=== PATIENT | male | born 1965 ===

== ENCOUNTER 2024-06-19 21:19 | Emergency (ER) | payer BC, SELFPAY ==
[2024-06-19 21:24] VITALS: BP 117/81; PULSE 115; RESP 16; TEMP 36.9; O2SAT 96; BMI 29.3
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
--- OUTSIDE RECORDS SUMMARY | 2024-06-19 22:12 | XMS_ITS | Continuity of Care Document ---
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 It does not include entries that were removed or entered in error. Problem Status Onset Date Problem Type Date of Resolution Comments Source Exposure to potentially hazardous substance ([facility] [id number]) Active 01/01/20 24 Condition Jan 01, 2024 Entered By: KAROLYN WILKINSON Comment: [facility] Documentation Initiative [facility] CAD - Coronary Artery Disease ([facility] [id number]) Active Condition Oct 27, 2023 Entered By: NORMA PETER Comment: NSTEMI - 2017 [facility]) Erectile dysfunction Active Condition [facility]) Ex-smoker Active Condition Oct 27 Entered By: NORMA PETER Comment: Quit > 15 years ago [facility]) Family history of disorder Active Condition Oct 27, 2023 Entered By: NORMA PETER Comment: Father -MIOct 27, 2023 Entered By: NORMA PETER Comment: Brother -MIOct 27, 2023 Entered By: NORMA PETER Comment: Mother -polycystic kidneys with renal transplant [facility]) GERD - Gastro-Esophageal Reflux Disease ([facility] [id number]) Active Condition [facility]) History of surgery Active Condition Oct 27, 2023 Entered By: NORMA PETER Comment: Cardiac stents [place] ([facility]) HTN - Hypertension ([facility] [id number]) Active Condition [facility]) Mixed Hyperlipidemia ([facility] [id number]) Active Condition [facility]) Obstructive sleep apnea of adult [facility] Social and personal history finding Active Condition Oct 27, 2023 Entered By: NORMA PETER Comment: MarriedOct 27, 2023 Entered By: NORMA PETER Comment: Does not drink alcoholOct 27, 2023 Entered By: NORMA PETER Comment: 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, 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 Entered By: NORMA PETER Comment: Co-managed at [facility] ([facility]) Diagnosis: ICD-10-CM Z13.83 Encounter for screening for respiratory disorder NEC Active Diagnosis [place] ([facility]) Diagnosis: ICD-10-CM R06.00 Dyspnea, unspecified Active Diagnosis [facility] Diagnosis: ICD-10-CM Z00.01 Encounter for general adult medical exam w abnormal findings Active Diagnosis [facility] ([facility]) Medications Combined list of outpatient medications from Department of Defense and Veterans Affairs facilities.Medications provided include 1) outpatient medications from the last 15 months, and 2) patient-reported medications. Medication Details Route Status Patient Instructions Prescription Expires Prescription Number Last Dispense Date Ordering Provider Order Date Order Qty Source ASPIRIN 81MG TAB,EC ASPIRIN 81MG TAB,EC Non-VA TAKE ONE TABLET BY MOUTH EVERY DAY Oct 13, 2022 Non-[facility] Document ed by: Suzette GRIDER Document ed at: [facility] ([facility]) ORAL ACTIVE PIERO GRIDER 2021 [facility] ([facility]) ATORVASTATI N CA 40MG TAB ATORVAST ATIN CA 40MG TAB Non-VA TAKE ONE TABLET BY MOUTH EVERY DAY Oct 13, 2022 Non-VA Document ed by: Suzette GRIDER Document ed at: [facility] ([facility]) ORAL ACTIVE PIERO GRIDER 2021 [facility] ([facility]) GLUCOSAMINE CAP/TAB GLUCOSAM INE CAP/TAB Non-VA TAKE UNK DOSE BY MOUTH DAILY SUPPLEME NT Oct 27, 2023 Non-VA Document ed by: LEVI PETER Document ed at: [facility] ([facility]) ORAL ACTIVE EUGENIE PETER 2023 [facility] ([facility]) LISINOPRIL 10MG TAB LISINOPR IL 10MG TAB Non-VA TAKE ONE-HALF TABLET BY MOUTH Oct 13, 2022 Non-VA Document ed by: Suzette GRIDER Document ed at: [facility] ([facility]) ORAL ACTIVE PIERO GRIDER 2021 [facility] ([facility]) NITROGLYCER IN 0.4MG TAB,SUBLING UAL NITROGLY CERIN 0.4MG TAB,SUBL INGUAL Non-VA DISSOLVE ONE TABLET UNDER THE TONGUE EVERY 5 MINUTES FOR UP TO 3 DOSES IF NEEDED NEEDED Oct 13, 2022 Non-VA Document ed by: Suzette GRIDER Document ed at: [facility] ([facility]) SUBLIN GUAL ACTIVE CHEOPIERO SEPAÑACatarino CLAU 2021 [facility] ([facility]) PANTOPRAZOL E NA 40MG TAB,EC PANTOPRA ZOLE NA 40MG TAB,EC Non-VA TAKE ONE TABLET BY MOUTH DAILY FOR HEARTBUR N Oct 27, 2023 Non-VA Document ed by: LEVI PETER Document ed at: [facility] ([facility]) ORAL ACTIVE EUGENIE PETER 2023 [facility] ([facility]) SILDENAFIL CITRATE 50MG TAB SILDENAF IL CITRATE 50MG TAB Non-VA TAKE ONE TABLET BY MOUTH NEEDED FOR ERECTILE DYSFUNCT ION FOR ERECTILE DYSFUNCT ION Oct 27, 2023 Non-VA Document ed by: LEVI PETER Document ed at: [facility] ([facility]) ORAL ACTIVE EUGENIE PETER 2023 [facility] ([facility]) Vital Signs Combined list of inpatient and outpatient Vital Signs from Department of Defense and Veterans Affairs, ranging from 12 months to all on record, depending upon the facility. Vital Sign Value Date Comments Source Encounters Combined list of: 1) Encounters from Department of Veterans Affairs facilities going back up to thelast 18 months. 2) Encounters from the Department of Defense facilities going back up to 280 months. Location Location Details Encounter Type Encounter Number Reason For Visit Attending Provider ADM Date DC Date Status Disposition Source [facility] Outpatient Encounter [id number] RAMESH PARDO 03/16 [facility] Outpatient Encounter [id number] 10/13 [facility] Outpatient Encounter [id number] 10/15 [facility] Outpatient Encounter [id number] 10/15 [facility] Outpatient Encounter [id number] 10/27 [facility] ([facility]) Outpatient Encounter [id number] Diagnos is: ICD-10- CM Z00.01 Encount er for general adult medical exam w abnorma l finding s
OSORIO PETER A 10/27 [facility] ([facility]) [facility] ([facility]) BREATHING CAPACITY TEST [id number] Diagnos is: ICD-10- CM Z13.83 Encount er for screeni ng for respira tory disorde r NEC<br/ > ANABEL,HE ATHER T 10/29 [facility] ([facility]) [facility] BREATHING CAPACITY TEST [id number] Diagnos is: ICD-10- CM R06.00 Dyspnea , unspeci fied
MIRIAN,CHRI DEBRA H 10/29 [facility] ([facility]) Outpatient Encounter [id number] 10/29 [facility] Outpatient Encounter [id number] 11/02 [facility] Social History Combined list of available smoking, tobacco, and other social history from Department of Defense and Veterans Affairs facilities. Social History Type Response Date Comment Source Tobacco smoking status [facility]-TOBACCO FORMER USER 10/27/2023 [facility] ([facility]) [place] of tobacco use [place] QUIT 15 YRS OR MORE 10/27/2023 [facility]) History of tobacco use [place] FOR[place] US[place] 10/13/2022 [facility]) History of tobacco use FORMER TOBACCO USER 7Y OR GREATER 09/04/2016 [facility] History of tobacco use NO LONGER USES TOBACCO 11/29/2007 [facility] History of tobacco use LIFETIME TOBACCO NON-USER 09/14/2006 [facility] History of tobacco use NO LONGER USES TOBACCO 06/10/2005 stopped 10 years ago [facility]
--- OUTSIDE RECORDS SUMMARY | 2024-06-19 22:13 | XMS_ITS | Encounter Summary ---
Author Name [facility] Organization [facility] Address [address] [place] [address] Care Team Providers Care Risk Engineer Name Role Phone NORMA PETER Primary Care Provider Unavailabl e Insurance Providers: All historical and current Section Date Range: From patient's date of to the date document was created. This section includes the names of all active insurance providers for the patient. Insurance Provider Type of Coverage Plan Name Start of Policy Coverage End of Policy Coverage Group Number Member ID Insurance Provider's Telephone Number Policy Escobar's Name Patient's Relationship to Policy Escobar [place]* PREFERRED PROVIDER ORGANIZAT ION (PPO) LINE CONST RUCTI ON Jul 26, 2013 [id number] KAITLIN NICHOLS JR PATIENT [place] BS [place] PREFERRED PROVIDER ORGANIZAT ION (PPO) LINE CONST RUCTI ON Jul 26, 2013 [id number] [phone] KAITLIN NICHOLS JR PATIENT [place] PREFERRED PROVIDER ORGANIZAT ION (PPO) LINE CONST BENEF IT Jul 26, 2013 [id number] Jenn NICHOLS PATIENT [place] PREFERRED PROVIDER ORGANIZAT ION (PPO) LINE CONST RUCTI ON BE Jul 26, 2013 [id number] KAITLIN NICHOLS JR [place]IENT [place] PREFERRED PROVIDER ORGANIZAT ION (PPO) LINE CONST RUCTI ON BE Jul 26, 2013 [id number] [phone] MAGDALENA KAITLIN SAPP PATIENT [place] PREFERRED PROVIDER ORGANIZAT ION (PPO) LINE CONST BE Jul 26, 2013 [id number] [phone] MAGDALENA KAITLIN SAPP [facility]IENT [facility] LINE CONST RUCTI ON Jul 26, 2013 [id number] MAGDALENA SAPPKAITLIN PATIENT [employer] ([id number]) PRESCRIPT ION BARGA INING Jul 26, 2013 [id number] MAGDALENA SAPPKAITLIN PATIENT [employer] ([employer]) PRESCRIPT ION BAR[place] INING Jul 26, 2013 [id number] [phone] Jenn NICHOLS AUL PATIENT [employer] ([employer]) PRESCRIPT ION BARGA INING Jul 26, 2013 [id number] [phone] KAITLIN NICHOLS JR PATIENT [employer] THERAPEUTI CS PRESCRIPT ION BCTX Jul 26, 2013 [id number] MAGDALENA KAITLIN PATIENT Selected Encounter This section includes the information on record at [place] for the Encounter. Date/Time Encounter Type Encounter Description Reason Provider Source Oct 27, 2023 12:45 PM Outpatient Encounter PRIMARY CARE/MEDICINE ICD-10-CM Z00.01 Encounter for general adult medical exam w abnormal findings NORMA PETER [facility] Encounter Template Text not used by [place] Assessments - Encounter Diagnoses This section includes the primary and secondary diagnoses documented for the Encounter. Date/Time Primary/Secondary Diagnosis Diagnosis Name Provider Source Oct 27, 2023 01:51 PM PRIMARY Encounter for general adult medical exam w abnormal findings CLAUDETTE PETER ([facility]) Oct 27, 2023 01:51 PM SECONDARY Athscl heart disease of [place] coronary artery w/o ang pctrs CLAUDETTE PETER ([facility]) Oct 27, 2023 01:51 PM SECONDARY Chronic fatigue, unspecified CLAUDETTE PETER ([facility]) Oct 27, 2023 01:51 PM SECONDARY Essential (primary) hypertension CLAUDETTE PETER ([facility]) Oct 27, 2023 01:51 PM SECONDARY Gastro-esophageal reflux disease without esophagitis CLAUDETTE PETER ([facility]) Oct 27, 2023 01:51 PM SECONDARY Male erectile dysfunction, unspecified CLAUDETTE PETER ([facility]) Oct 27, 2023 01:51 PM SECONDARY Mixed hyperlipidemia CLAUDETTE PETER [facility] ([facility]) Oct 27, 2023 01:51 PM SECONDARY Myalgia, unspecified site CLAUDETTE PETER [facility] ([facility]) Oct 27, 2023 01:51 PM SECONDARY Pain in right shoulder CLAUDETTE PETER [facility] ([facility]) Oct 27, 2023 01:51 PM SECONDARY Wheezing CLAUDETTE PETER [facility] ([facility]) Plan of Treatment: Future Appointments (+ 6 months) and Future Tests (+/- 45 days) The Plan of Treatment section includes future care activities for the patient from all [place] treatmentfacilities. This section includes future appointments and future orders which are active, pending or scheduled. Future Appointments This section includes appointments that were scheduled to occur 6 months from the date of the Encounter, up to a maximum of 20 appointments. The data comes from all [place] treatment facilities. Appointment Date/Time Appointment Type Appointme nt Facility Name Oct 29, 2023 01:00 PM AMBULATORY - NONE [facility] ([facility]) Active, Pending, and Scheduled Orders This section includes a listing of several types of active, pending, and scheduled orders, including clinic medications orders, diagnostic test orders, procedure orders and consult orders; where the start date of the order is 45 days before the date of the Encounter or 45 days after the date of theEncounter. The data comes from all [place] treatment facilities. Test Date/Time Test Type Test Details Facility Name Oct 27, 2023 12:00 AM Laboratory - Chemi stry Order COVID-19 SCREENING PANEL (CEPHEID) NASOPHARYNGEAL SWAB Nasopharyngeal SP ONCE [place] ([facility]) Vital Signs: All taken on the encounter date This section contains inpatient and outpatient Vital Signs collected on the date of the Encounter. Date/Time Temperature Pulse Blood Pressure Respiratory Rate SP02 Pain Height Weight Body Mass Index Source Oct 27, 2023 01:03 PM 62 /min 136/85 mm[Hg] 95 % [facility] ([facility]) Oct 27, 2023 12:53 PM 97.4 F 76 /min 143/92 mm[Hg] 16 /min 96 % 0 71.496 in 241.3 lb 33 [facility] ([facility]) Social History: Smoking Status (Most current) and Tobacco Use (All prior to encounter date) This section includes the most current, and the historical, smoking and tobacco- related health factors from the [facility] where the Encounter took place. Current Smoking Status This section includes the most current smoking, or tobacco-related health factor, from the [place] facility where the Encounter took place. Date/Time Current Smoking Status Comment Facil ity Oct 27, 2023 12:45 PM VA-TOBACCO FORMER USER [place] ([facility]) Tobacco Use History This section includes a history of the smoking, or tobacco-related health factors, that were collected on or before the date of the Encounter. The data comes from the [facility] where the Encounter took place. Date/Time Smoking Status/Tobacco Use Comment [facility] Oct 27, 2023 12:45 PM VA-TOBACCO QUIT 15 YRS OR MORE [facility] ([facility]) Oct 13, 2022 01:15 PM VA-TOBACCO FORMER USER [place] ([facility]) Oct 13, 2022 01:15 PM VA-TOBACCO QUIT 15 YRS OR MORE [place] ([facility]) Encounter Notes: All associated encounter notes This section contains the clinical notes associated to the Encounter. Date/Time Encounter Note(s) Provider Source Oct 28, 2023 08:32 AM PRIMARY CARE NONVA NOTE: LOCAL TITLE: CO-MANAGED CARE NOTE STANDARD TITLE: PRIMARY CARE NONVA NOTE DATE OF NOTE: OCT 28, 2023@08:32 ENTRY DATE: OCT 28, 2023@08:32:19 AUTHOR: SADIE KINSEY COSIGNER: URGENCY: STATUS: COMPLETED [facility] Non VA Labs Sep [facility] Hemoglobin: 16.8 Hematocrit: 48.4 Sodium: 138 Potassium: 4.5 Glucose:115 GFR: 88 Creatinine: 1.00 PSA: 0.78 ALT: 42 AST: 26 Entry of Outside Tests/Reports: Patient reports that LDL test was done previously or at another facility. Date: October 15, 2023 Location: [facility] LDL: 107 Patient reports HDL done previously or at another facility. Date: October 15, 2023 Location: [facility] HDL: 45 Patient reports Triglyceride done previously or at another facility. Date: October 15, 2023 Location: [facility] Triglyceride: 107 Patient reports Cholesterol done previously or at another facility. Date: October 15, 2023 Location: [facility] Cholesterol: 171 Patient's Hemoglobin A1c from a non-VA lab. Date: October 15, 2023 Result 5.4 Influenza Immunization: The patient declines to receive the recommended dose of seasonal influenza vaccine. Immunization: INFLUENZA, UNSPECIFIED FORMULATION Refusal Reason: PATIENT DECISION Patient refuses all immunization(s) in the FLU group Date Documented: 10/28/23 08:36 Herpes Zoster (Shingles) Vaccine: The patient declines to receive the recommended dose of zoster (shingles) vaccine. Immunization: ZOSTER RECOMBINANT Refusal Reason: PATIENT DECISION Patient refuses all immunization(s) in the ZOSTER group Date Documented: 10/28/23 08:36 Pneumococcal Conjugate Vaccine (PCV15/PCV20): Refuses PCV vaccine Immunization: PNEUMOCOCCAL CONJUGATE, UNSPECIFIED FORMULATION Refusal Reason: PATIENT DECISION Patient refuses all immunization(s) in the PneumoPCV group Date Documented: 10/28/23 08:36 Tdap Immunization: The patient declines to receive the recommended dose of Tdap vaccine. Immunization: TDAP Refusal Reason: PATIENT DECISION Patient refuses all immunization(s) in the TDAP group Date Documented: 10/28/23 08:37 COVID-19 Immunization: Refused Pfizer Monovalent COVID-19 vaccine Immunization: COVID-19 (PFIZER), MRNA, LNP-S, PF, KIMBERLEY-SUCROSE, 30 MCG/0.3 ML (AGES 12+ YEARS) Refusal Reason: PATIENT DECISION Patient refuses all immunization(s) in the COVID-19 group Date Documented: 10/28/23 08:37 /rafi/ SADIE Cifuentes [facility] ELECTRIC ORGAN ASSEMBLER AND CHECKER Signed: 10/28/2023 08:37 SADIE KINSEY ([facility]) Oct 27, 2023 01:12 PM H & P NOTE: LOCAL TITLE: [facility] ANNUAL VISIT STANDARD TITLE: H & P NOTE DATE OF NOTE: OCT 27, 2023@13:12 ENTRY DATE: OCT 27, 2023@13:12:16 AUTHOR: NORMA PETER COSIGNER: URGENCY: STATUS: COMPLETED Subjective: Chief complaint: annual exam HPI: The [place] is a 58 year old MALE here for annual exam. Patient has complaints of whistling wheezing on exhalation while laying flat. Patient denies increased shortness of breath, heavy chest, lower extremity edema. Patient states he has been previously worked up at the [place] in [facility]. Patient reports he sees a chiropractor a right shoulder strain. Patient reports fatigue for which she has been worked up at [facility]. Patient receives [facility] of the [facility] at: [facility] Preventative Services: Cholesterol testing: Accomplished with [facility] Diabetes: Accomplished with [facility] CRC Screening: Cologuard through [facility] PSA: Accomplished with [facility] AAA Screening: n/a due to age Lung Cancer Screening: Neo > 15 years ago STI/HIV: no concerns Last eye exam: not recently, will pursue outside of [place] Past Medical History: Active problems - Computerized Problem List is the source for the followin. Obstructive sleep apnea of adult 2. CAD - Coronary Artery Disease ([facility] [id number]) - NSTEMI - 2017 3. HTN - Hypertension ([facility] [id number]) 4. Mixed Hyperlipidemia ([facility] [id number]) 5. 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 History of surgery - Cardiac stents 7. Family history of disorder - Father -ND - Brother -ND - Mother -polycystic kidneys with renal transplant 8. Ex-smoker - Quit > 15 years ago 9. GERD - Gastro-Esophageal Reflux Disease ([facility] [id number]) 10. Erectile dysfunction Social History: Reviewed nurse's progress notes from today. Allergies:Patient has answered NKA MEDICATION RECONCILIATION Outpatient At this visit I have reviewed the medication list, and discussed relevant medications with the patient/surrogate. An updated patient medication list was given to the participant(s). Review of System: General:No weight loss, fever, chills, weakness or fatigue. Skin: No rash, no itching, no concerning moles HEENT: No visual changes, No hearing loss, no congestion, no PND. Cardiovascular: No chest pain, no chest pressure, no palpitations Lungs: No SOB, no cough GI: No anorexia, no nausea, no abdominal pain, regular bowel movements, no blood in stool : No dysuria, no hematuria, No discharge Peripheral vascular: No edema, no leg pain Neuro: No dizziness, no headaches, no ataxia, no memory concerns, no numbness or tingling in extremities Psych: Mood stable, no SI/SH Endocrine: No heat or cold intolerance. No polyuria or polydipsia. Objective: Physical Exams: General: No acute distress, Well developed, well nourished Vitals: BP: 136/85 (10/27/2023 13:03) P: 62 (10/27/2023 13:03) R: 16 (10/27/2023 12:53) T: 97.4 F [36.3 C] (10/27/2023 12:53) WT: 241.3 lb [109.45 kg] (10/27/2023 12:53) Pain: 0 (10/27/2023 12:53) O2 Sat: 95% (10/27/2023 13:03) BMI: 33.3 BMI > 25 Assessment Refer patient to the PACT Team Data Security Consultant Patient declines referral. Skin:No concerning lesions. Eyes: PERRLA, EOMI Ears: Bilateral canals clear, TMs with good cone of light Mouth: Oral mucosa pink, tongue midline, pharynx without exudates Cardiac: S1S2, RRR, no murmurs, no gallops, no rubs Chest/Lungs: CTAB, no respiratory distress Abdominal: Bowels sounds active, non-tender, no hepatosplenomegaly, no masses Extremities: Warm, no tenderness, no edema MSK: No joint deformities or swelling on inspection and palpation. Neurological: AOx3, CN II-XII grossly intact. Gait stable, fluid. Essential Medication List - reviewed with Patient/Caregiver Medication Reconciliation: Education Evaluations *Was medication education provided for NEW medications or CHANGES to medications? (including medication name, dose, route, reason for use, and potential side effects). No new medications or medication changes during this encounter. TERATOGENIC MED & CONTRACEPTION REVIEW (Optional)... = MEDICATION RECONCILIATION = List Given: An updated medication list was provided to the patient/caregiver. Review Done: The medication list shown below was verified for accuracy and it includes all pending medications/active medications/all medications or discontinued within the last 90 days/all remote medications and non-VA medications. If a given category (i.e. remote meds) is not shown, that means that a patient doesn't have a medication(s) in that category. Allergies listed below were also reviewed/updated for accuracy. Allergies/ADR from [facility] may not display in CPRS. Use JLV MRT5 - Allergies/ADRs FACILITY ALLERGY/ADR -------- [facility] No Known Allergies [facility] NO KNOWN ALLERGIES Active and Recently Outpatient Medications (including Supplies): Start Date Active Non-VA Medications Refills Expiration 1) Non-VA ASPIRIN 81MG EC TAB SiMG ACTIVE MOUTH EVERY DAY 2) Non-VA ATORVASTATIN CALCIUM 40MG TAB ACTIVE SiMG MOUTH EVERY DAY 3) Non-VA GLUCOSAMINE CAP/TAB Sig: UNK ACTIVE DOSE MOUTH DAILY 4) Non-VA LISINOPRIL 10MG TAB SiMG ACTIVE MOUTH 5) Non-VA NITROGLYCERIN 0.4MG SL TAB Sig: ACTIVE 0.4MG UNDER THE TONGUE EVERY 5 MINUTES FOR UP TO 3 DOSES IF NEEDED 6) Non-VA PANTOPRAZOLE NA 40MG EC TAB Sig: ACTIVE 40MG MOUTH DAILY 7) Non-VA SILDENAFIL CITRATE 50MG TAB Sig: ACTIVE 50MG MOUTH NEEDED FOR ERECTILE DYSFUNCTION Vaccinations: IM - Immunizations ADMINISTERED No data available CONTRAINDICATED No data available REFUSED ======= Immunization Date Facility Info INFLUENZA, UNSPECIFIED FORMULATI* 10/13/2022 [place]* <I> SARS-COV-2 (COVID-19) VACCINE, U* 10/13/2022 [place]* <I> TDAP 10/13/2022 [place]* <I> ZOSTER RECOMBINANT 10/13/2022 [place]* <I> <I> See the Detailed Immunizations Health Summary Component[DIM] for Additional Information * Value is truncated; see the Detailed Immunizations Health Summary Component[DIM] for complete text Assessment/Plan: Assessment/Plan: CAD/Hx of NSTEMI/HTN - Continue lisinopril 5 mg daily - Continue aspirin 81 mg daily Mixed Hyperlipidemia - Continue atorvastatin 40 mg daily - Follow-up with prescribing provider regarding chronic muscle pain GERD - Continue pantoprazole 40 mg daily Erectile dysfunction -Continue sildenafil 25 mg to 50 mg daily as needed Wheezing - PFTs ordered Fatigue - continue with [facility] provider as previously scheduled Right shoulder strain - Physical therapy contact card provided to patient. - Continue with chiropractor as previously scheduled Avg Risk Colorectal Cancer Screen: AVERAGE RISK colorectal cancer screening is due based on information available to this clinical reminder Colorectal cancer screening already scheduled or in process of being scheduled. Comment: Cologuard through [facility], awaiting results Assess Statin Use - Lipids (CVD/DM): The patient is still taking the NON-VA statin medication as documented. Patient Education of Treatment Plan: Patient indicates readiness to learn, has been instructed on the treatment plan, but needs reinforcement. Other: Return to clinic in one year or as needed. /rafi/ NORMA PETER NURSE PRACTITIONER Signed: 10/27/2023 13:51 NORMA PETER ([facility]) Oct 27, 2023 01:02 PM ADVANCE DIRECTIVE: LOCAL TITLE: AD NOTIFICATION AND SCREENING STANDARD TITLE: ADVANCE DIRECTIVE DATE OF NOTE: OCT 27, 2023@13:02 ENTRY DATE: OCT 27, 2023@13:02:02 AUTHOR: SADIE KINSEY EXP COSIGNER: URGENCY: STATUS: COMPLETED ADVANCE DIRECTIVE NOTIFICATION: Patient was given written notification of the following rights: 1. Accept or refuse any medical treatment. 2. Complete a durable power of corporate attorney for health care. 3. Complete a living will. ADVANCE DIRECTIVE SCREENING: Does patient have an Advance Directive? The patient does not have an Advance Directive. The patient does not wish to create an Advance Directive for health care. /rafi/ SADIE Cifuentes [facility] ELECTRIC ORGAN ASSEMBLER AND CHECKER Signed: 10/27/2023 13:03 SADIE KINSEY ([facility]) Oct 27, 2023 12:55 PM PRIMARY CARE NURSI NG NOTE: LOCAL TITLE: [facility] NURSING PROGRESS NOTE STANDARD TITLE: PRIMARY CARE NURSING NOTE DATE OF NOTE: OCT 27, 2023@12:55 ENTRY DATE: OCT 27, 2023@12:55:12 AUTHOR: SADIE KINSEY EXP COSIGNER: URGENCY: STATUS: COMPLETED TYPE OF VISIT: Appointment Check In Type of appointment: In-person appointment REASON FOR VISIT: Annual, [facility] managed ALLERGIES: Patient has answered NKA VITAL SIGNS: Blood Pressure: 143/92 (10/27/2023 12:53) Pulse: 76 (10/27/2023 12:53) Respiration: 16 (10/27/2023 12:53) Temperature: 97.4 F [36.3 C] (10/27/2023 12:53) Weight: 241.3 lb [109.45 kg] (10/27/2023 12:53) Height: 71.496 in [181.6 cm] (10/27/2023 12:53) BMI: 33.3 O2 Sat: 96% (10/27/2023 12:53) Pain: 0 (10/27/2023 12:53) PAIN SCREEN: Patient is not having significant pain that they wish to discuss with their provider today. Tobacco Use Screening: The patient is a former tobacco user. The patient quit fifteen or more years ago. Alcohol Use Screen (AUDIT-C): Alcohol Screen: SCREEN FOR ALCOHOL (AUDIT-C) An alcohol screening test (AUDIT-C) was negative (score=0). 1. How often did you have a drink containing alcohol in the past year? Never 2. How many drinks containing alcohol did you have on a typical day when you were drinking in the past year? Response not required due to responses to other questions. 3. How often did you have six or more drinks on one occasion in the past year? Response not required due to responses to other questions. Depression Screening: Perform PHQ-2 A PHQ-2 screen was performed. The score was 0 which is a negative screen for depression. Over the past two weeks, how often have you been bothered by the following problems? 1. Little interest or pleasure in doing things Not at all 2. Feeling down, depressed, or hopeless Not at all Suicide Screen: C-SSRS Screening [place] Suicide Severity Rating Scale (C-SSRS) screener 1. Over the past month, have you wished you were or wished you could go to sleep and not wake up? No 2. Over the past month, have you had any actual thoughts of killing yourself? No 3. Over the past month, have you been thinking about how you might do this? Response not required due to responses to other questions. 4. Over the past month, have you had these thoughts and had some intention of acting on them? Response not required due to responses to other questions. 5. Over the past month, have you started to work out or worked out the details of how to kill yourself? Response not required due to responses to other questions. 6. If yes, at any time in the past month did you intend to carry out this plan? Response not required due to responses to other questions. 7. In your lifetime, have you ever done anything, started to do anything, or prepared to do anything to end your life (for example, collected pills, obtained a gun, gave away valuables, went to the roof but didn't jump)? No 8. If YES, was this within the past 3 months? Response not required due to responses to other questions. Nursing Annual Screening: Fall History Screen During the past 12 months, have you had any falls? Patient does not report any falls in the past 12 months. MEDICATIONS: Patient is on one of the following medication classes: Antihypertensives, Antidepressants, Antipsychotics, Diuretics, or Controlled substance medication used for pain. FALL RISK ADVICE: Fall Risk Advice provided. Handout entitled Fall Prevention At Home reviewed and given to patient and/or significant other. Script Talk Screen Are you able to read your prescription bottles with your glasses, magnifiers or other aids? Yes or patient not taking any prescriptions. Skin Screen Patient reports any current pressure ulcers, a history of pressure ulcers, or a wound from a emergency medical dispatcher or Patient is bed-confined or a wheelchair-user or Patient requires assistance to transfer/change position No, Skin Screen is Negative Home Abuse/Violence Screen Is your home free of abuse and violence? Yes MOVE! Program Screen Body Mass Index (BMI)= 33.3 [place]: No data available [place] Hgb A1C: No data available [place] Hgb A1C: No data available Point of Care Hgb A1C: POC HGB A1C____ No Outpatient Nutrition Screen Body Mass Index (BMI)= 33.3 [place]: No data available [place] Hgb A1C: No data available [place] Hgb A1C: No data available Point of Care Hgb A1C: POC HGB A1C____ Is patient's BMI less than 18.5? No Does patient have swallowing, coughing, or chewing problems affecting oral intake? No Has patient experienced unplanned weight loss or gain greater than 10 pounds over the last 2 months? No Is patient's Hgb A1C (Glycosylated Hemoglobin) greater than 9.5? Information not available Is patient receiving Total Parenteral Nutrition (TPN) or Tube Feedings? No Patient Health Education Screen BARRIERS/SPECIAL NEEDS: No barriers identified PREFERRED STYLE OF LEARNING: Watching something Other: do it Client Assistive Service (KLARISSA) Screen Does the patient require assistance with outpatient visit? No Homelessness/Food Insecurity Screen: In the past 2 months, have you been living in stable housing that you own, rent, or stay in as part of a household? Yes - Living in stable housing. Are you worried or concerned that in the next 2 months you may NOT have stable housing that you own, rent, or stay in as part of a household? No - Not worried about housing near future The reports the following: Within the past 12 months, you worried whether your food would run out before you got money to buy more. Never true Within the past 12 months, the food you bought just didn't last and you didn't have money to get more. Never true Food Insecurity Resources /es/ SADIE Cifuentes [facility] ELECTRIC ORGAN ASSEMBLER AND CHECKER Signed: 10/27/2023 13:01 SADIE KINSEY ([facility])
== END 2024-06-19 22:15 | disposition home or self-care (01) ==
PROVIDERS: Emergency Provider Family Medicine
DX: S70.12XA Contusion of left thigh, initial encounter (principal); Y04.2XXA Assault by strike against or bumped into by another person, initial encounter
CPT/HCPCS: 99283